=== PATIENT | female | born 1950 | race Caucasian/White ===

== ENCOUNTER 2019-03-30 05:41 | Inpatient (IN) ==
[2019-03-12 10:16] LABS: Basophils % 0.5 % (0.0-0.8); Eosinophils # 0.1 10*3/uL (0.0-0.87); Eosinophils % 1.4 % (0.00-10.9); Hematocrit 40.8 VOL% (35.7-47.0); Hemoglobin 12.4 GM/DL (12.0-16.0); Immature Granulocytes % 0.4 %; Immature Granulocytes Absolute 0.02 #; Lymphocytes % 35.7 % (21.3-54.2); Mean Corpuscular HGB Conc 30.4 GM/DL (32-36); Mean Corpuscular Volume 90.1 FL (87-102); Mean Platelet Volume 10.2 FL (9.6-12.0); Monocytes % 12.3 % (1.7-12.7); Neutrophils % 49.7 % (38.7-73.9); Platelet Count 257 T/CUMM (130-400); Red Blood Count 4.53 MC/CUMM (3.8-5.5); Red Cell Distribution Width 13.2 % (9.3-17.3); White Blood Count 5.7 T/CUMM (4-12)
[2019-03-12 10:27] LABS: Apearance,Urine CLEAR (Clear); Bilirubin,Urine Negative (Negative); Blood, Urine Negative (Negative); Glucose,Urine (UA) Negative (Negative); INR 1.7; Ketones,Urine Negative (Negative); Mucus,Urine Occasional /LPF (Occasional); Nitrite,Urine Negative (Negative); PT Patient Result 18.1 SECS (9.6-12.2); Partial Thromboplastin Time 33.1 SECS (20.8-36.0); Protein,Urine Negative; RBC,Urine <1 /HPF (0-4); Urine Color Straw (Yellow); Urine Specific Gravity 1.008 (1.001-1.035); Urine Urobilinogen < 2.0 EU/DL (0.2-1.0)
[2019-03-12 10:43] LABS: Albumin 3.5 G/DL (3.4-5.0); Bilirubin,Total 0.4 MG/DL (0.2-1.0); Calcium 8.6 MG/DL (8.5-10.1); Thyroid Stimulating Hormone 1.45 uIU/ml (0.358-3.74); Total Protein 7.2 G/DL (6.4-8.3)
[2019-03-30] MEDS ORDERED: ceFAZolin 1,000 MG in SYRINGE 1 EACH IV ONE (06:00)
[2019-03-30] MEDS ORDERED: VANCOMYCIN INJ 1,000 MG in SODIUM CHLORIDE 0.9% 250 ML IV ONE (06:00)
[2019-03-30] MEDS ORDERED: LACTATED RINGERS 1,000 ML IV SCH (06:30)
[2019-03-30] MEDS ORDERED: ALBUTEROL/IPRATROPIUM 3 ML NEB RESP TX ONE (06:34)
[2019-03-30] MEDS ORDERED: GABAPENTIN 400 MG CAPSULE PO ONE (06:34)
[2019-03-30] MEDS ORDERED: FAMOTIDINE 20 MG TABLET PO ONE (06:34)
[2019-03-30] MEDS ORDERED: ACETAMINOPHEN 500 MG TABLET PO ONE (06:34)
[2019-03-30] MEDS ORDERED: ceFAZolin 1,000 MG VIAL ONE (06:37)
[2019-03-30] MEDS ORDERED: VANCOMYCIN 1,000 MG VIAL ONE (06:37)
[2019-03-30] MEDS ORDERED: ACETAMINOPHEN 500 MG TABLET ONE (06:38)
[2019-03-30] MEDS ORDERED: GABAPENTIN 400 MG CAPSULE ONE (06:38)
[2019-03-30] MEDS ORDERED: SCOPOLAMINE 1.5 MG PATCH TRANSDERM ONE ×2 (06:40→06:45)
[2019-03-30 06:42] LABS: PT Patient Result 10.6 SECS (9.6-12.2); Partial Thromboplastin Time 25.9 SECS (20.8-36.0)
[2019-03-30] MEDS ORDERED: fentaNYL 100 MCG/2 ML VIAL ONE (06:52)
[2019-03-30] MEDS ORDERED: MIDAZOLAM 2 MG/2 ML VIAL ONE ×2 (06:52→08:53)
[2019-03-30] MEDS ORDERED: EPINEPHrine 1 MG/ML VIAL ONE (06:57)
[2019-03-30] MEDS ORDERED: DEXAMETHASONE 4 MG/1 ML VIAL ONE ×2 (06:57→08:53)
[2019-03-30] MEDS ORDERED: BUPIVACAINE 0.5% 50 ML VIAL ONE (06:57)
[2019-03-30] MEDS ORDERED: HYDROmorphone 2 MG/1 ML VIAL IV PRN (07:06)
[2019-03-30] MEDS ORDERED: diphenhydrAMINE CAP 25 MG CAPSULE PO PRN (07:06)
[2019-03-30] MEDS ORDERED: BISACODYL 10 MG SUPP RECTAL PRN (07:06)
[2019-03-30] MEDS ORDERED: LACTULOSE 20 GM/30 ML UDCUP PO PRN (07:06)
[2019-03-30] MEDS ORDERED: TEMAZEPAM 7.5 MG CAPSULE PO PRN (07:06)
[2019-03-30] MEDS ORDERED: PROMETHAZINE 25 MG/1 ML VIAL IM PRN (07:06)
[2019-03-30] MEDS ORDERED: MAGNESIUM HYDROXIDE SUSP 30 ML UDCUP PO PRN (07:06)
[2019-03-30] MEDS ORDERED: ONDANSETRON 4 MG/2 ML VIAL IV PRN (07:06)
[2019-03-30] MEDS ORDERED: LORATADINE 10 MG TABLET PO PRN (07:08)
[2019-03-30] MEDS ORDERED: IBUPROFEN 600 MG TABLET PO PRN (07:08)
[2019-03-30] MEDS ORDERED: PROPOFOL 200 MG/20 ML VIAL IV ONE (08:52)
[2019-03-30] MEDS ORDERED: ePHEDrine 50 MG/ML AMP ONE (08:53)
[2019-03-30] MEDS ORDERED: ETOMIDATE 40 MG/20 ML VIAL IV ONE (08:53)
[2019-03-30] MEDS ORDERED: LACTATED RINGERS 1,000 ML IV ONE (08:53)
[2019-03-30] MEDS ORDERED: SODIUM CHLORIDE 0.9% 100 ML IV ONE (08:53)
[2019-03-30] MEDS ORDERED: GLYCOPYRROLATE 0.4 MG/2 ML VIAL ONE (08:53)
[2019-03-30] MEDS ORDERED: CARVEDILOL 3.125 MG TABLET PO SCH (09:00)
[2019-03-30] MEDS: DRONEDARONE 400 MG TABLET PO SCH ×2 (10:12→17:11)
[2019-03-30] MEDS: LOSARTAN 50 MG TABLET PO SCH ×2 (10:13→22:12)
[2019-03-30] MEDS: DOCUSATE SODIUM 100 MG CAPSULE PO SCH ×2 (10:19→22:05)
[2019-03-30] MEDS: ASPIRIN EC 81 MG TABLET PO SCH (10:19)
[2019-03-30] MEDS: FUROSEMIDE 20 MG TABLET PO SCH (10:20)
[2019-03-30] MEDS: ceFAZolin 1,000 MG in SYRINGE 1 EACH IV SCH ×2 (14:47→22:59)
[2019-03-30] MEDS: WARFARIN 2.5 MG TABLET PO SCH (17:10)
[2019-03-30] MEDS: CARVEDILOL 3.125 MG TABLET PO SCH (22:05)
[2019-03-30] MEDS: MULTIVITAMIN (OCUVITE) TABLET PO SCH (22:05)
[2019-03-30] MEDS: PANTOPRAZOLE 40 MG TABLET PO SCH (22:05)
[2019-03-30] MEDS: SIMVASTATIN 10 MG TABLET PO SCH (22:06)
[2019-03-31 05:17] LABS: PT Patient Result 10.5 SECS (9.6-12.2)
[2019-03-31 05:19] LABS: Basophils % 0.2 % (0.0-0.8); Hematocrit 30.4 VOL% (35.7-47.0); Hemoglobin 9.7 GM/DL (12.0-16.0); Immature Granulocytes % 0.4 %; Immature Granulocytes Absolute 0.05 #; Lymphocytes # 1.3 10*3/uL (1.4-4.0); Mean Corpuscular HGB Conc 31.9 GM/DL (32-36); Mean Corpuscular Volume 89.1 FL (87-102); Monocytes % 6.5 % (1.7-12.7); Neutrophils % 82.9 % (38.7-73.9); Platelet Count 199 T/CUMM (130-400); Red Blood Count 3.41 MC/CUMM (3.8-5.5); Red Cell Distribution Width 13.1 % (9.3-17.3); White Blood Count 12.6 T/CUMM (4-12)
[2019-03-31 05:40] LABS: Calcium 8.2 MG/DL (8.5-10.1); Osmolality,Calculated 284.1 MOS/KG (273-304)
[2019-03-31] MEDS: LEVOTHYROXINE 88 MCG TABLET PO SCH (06:39)
[2019-03-31] MEDS: FUROSEMIDE 20 MG TABLET PO SCH (08:52)
[2019-03-31] MEDS: LOSARTAN 50 MG TABLET PO SCH ×2 (08:52→22:00)
[2019-03-31] MEDS: CARVEDILOL 3.125 MG TABLET PO SCH ×2 (08:52→22:02)
[2019-03-31] MEDS: DRONEDARONE 400 MG TABLET PO SCH ×2 (08:52→17:39)
[2019-03-31] MEDS: ASPIRIN EC 81 MG TABLET PO SCH (08:52)
[2019-03-31] MEDS: DOCUSATE SODIUM 100 MG CAPSULE PO SCH ×2 (08:52→22:00)
[2019-03-31] MEDS: WARFARIN 5 MG TABLET PO SCH (17:39)
[2019-03-31] MEDS: MULTIVITAMIN (OCUVITE) TABLET PO SCH ×2 (21:59→22:00)
[2019-03-31] MEDS: SIMVASTATIN 10 MG TABLET PO SCH (22:00)
[2019-03-31] MEDS: PANTOPRAZOLE 40 MG TABLET PO SCH (22:00)
[2019-04-01 05:54] LABS: Basophils % 0.1 % (0.0-0.8); Eosinophils % 0.4 % (0.00-10.9); Hematocrit 26.5 VOL% (35.7-47.0); Hemoglobin 8.4 GM/DL (12.0-16.0); Immature Granulocytes % 0.4 %; Immature Granulocytes Absolute 0.04 #; Lymphocytes # 2.2 10*3/uL (1.4-4.0); Lymphocytes % 22.3 % (21.3-54.2); Mean Corpuscular HGB Conc 31.7 GM/DL (32-36); Mean Corpuscular Volume 90.4 FL (87-102); Mean Platelet Volume 11.3 FL (9.6-12.0); Monocytes % 10.8 % (1.7-12.7); Platelet Count 173 T/CUMM (130-400); Red Blood Count 2.93 MC/CUMM (3.8-5.5); Red Cell Distribution Width 13.4 % (9.3-17.3); White Blood Count 9.7 T/CUMM (4-12)
[2019-04-01] MEDS: LEVOTHYROXINE 88 MCG TABLET PO SCH (06:28)
[2019-04-01] MEDS: FUROSEMIDE 20 MG TABLET PO SCH (10:52)
[2019-04-01] MEDS: DOCUSATE SODIUM 100 MG CAPSULE PO SCH ×2 (10:53→21:22)
[2019-04-01] MEDS: DRONEDARONE 400 MG TABLET PO SCH ×2 (10:53→18:01)
[2019-04-01] MEDS: ASPIRIN EC 81 MG TABLET PO SCH (10:53)
[2019-04-01] MEDS: LOSARTAN 50 MG TABLET PO SCH ×2 (10:54→21:23)
[2019-04-01] MEDS: CARVEDILOL 3.125 MG TABLET PO SCH ×2 (10:54→21:22)
[2019-04-01] MEDS: WARFARIN 2.5 MG TABLET PO SCH (18:01)
[2019-04-01] MEDS: SIMVASTATIN 10 MG TABLET PO SCH (21:23)
[2019-04-01] MEDS: PANTOPRAZOLE 40 MG TABLET PO SCH (21:23)
[2019-04-01] MEDS: MULTIVITAMIN (OCUVITE) TABLET PO SCH (21:23)
[2019-04-02 06:07] LABS: Basophils % 0.3 % (0.0-0.8); Eosinophils # 0.2 10*3/uL (0.0-0.87); Eosinophils % 3.3 % (0.00-10.9); Hematocrit 25.7 VOL% (35.7-47.0); Immature Granulocytes % 0.3 %; Immature Granulocytes Absolute 0.02 #; Lymphocytes % 28.9 % (21.3-54.2); Mean Corpuscular HGB Conc 31.1 GM/DL (32-36); Mean Corpuscular Volume 91.1 FL (87-102); Monocytes % 11.7 % (1.7-12.7); Neutrophils % 55.5 % (38.7-73.9); Platelet Count 192 T/CUMM (130-400); Red Blood Count 2.82 MC/CUMM (3.8-5.5); Red Cell Distribution Width 13.5 % (9.3-17.3)
[2019-04-02 06:09] LABS: INR 1.2; PT Patient Result 12.7 SECS (9.6-12.2)
[2019-04-02] MEDS: LEVOTHYROXINE 88 MCG TABLET PO SCH (06:19)
[2019-04-02] MEDS ORDERED: SODIUM CHLORIDE 0.9% 1,000 ML IV PRN (08:51)
[2019-04-02] MEDS: LOSARTAN 50 MG TABLET PO SCH ×2 (10:05→20:36)
[2019-04-02] MEDS: DOCUSATE SODIUM 100 MG CAPSULE PO SCH ×2 (10:05→20:36)
[2019-04-02] MEDS: ASPIRIN EC 81 MG TABLET PO SCH (10:05)
[2019-04-02] MEDS: DRONEDARONE 400 MG TABLET PO SCH ×2 (10:06→20:36)
[2019-04-02] MEDS: CARVEDILOL 3.125 MG TABLET PO SCH ×2 (10:07→20:36)
[2019-04-02] MEDS: FUROSEMIDE 20 MG TABLET PO SCH (10:08)
[2019-04-02] MEDS: MULTIVITAMIN (OCUVITE) TABLET PO SCH (20:36)
[2019-04-02] MEDS: SIMVASTATIN 10 MG TABLET PO SCH (20:37)
[2019-04-02] MEDS: PANTOPRAZOLE 40 MG TABLET PO SCH (20:37)
[2019-04-02] MEDS: WARFARIN 5 MG TABLET PO SCH (20:40)
[2019-04-03 05:47] LABS: Basophils % 0.5 % (0.0-0.8); Eosinophils # 0.2 10*3/uL (0.0-0.87); Eosinophils % 2.9 % (0.00-10.9); Hematocrit 32.8 VOL% (35.7-47.0); Hemoglobin 10.4 GM/DL (12.0-16.0); Immature Granulocytes % 0.4 %; Immature Granulocytes Absolute 0.03 #; Lymphocytes # 2.2 10*3/uL (1.4-4.0); Lymphocytes % 28.9 % (21.3-54.2); Mean Corpuscular HGB Conc 31.7 GM/DL (32-36); Mean Corpuscular Volume 89.6 FL (87-102); Monocytes % 11.5 % (1.7-12.7); Neutrophils % 55.8 % (38.7-73.9); Platelet Count 191 T/CUMM (130-400); Red Blood Count 3.66 MC/CUMM (3.8-5.5); Red Cell Distribution Width 13.7 % (9.3-17.3); White Blood Count 7.6 T/CUMM (4-12)
[2019-04-03] MEDS: LEVOTHYROXINE 88 MCG TABLET PO SCH (06:51)
[2019-04-03 07:43] VITALS: BP 150/60
[2019-04-03] MEDS: ASPIRIN EC 81 MG TABLET PO SCH (09:25)
[2019-04-03] MEDS: DOCUSATE SODIUM 100 MG CAPSULE PO SCH (09:25)
[2019-04-03] MEDS: LOSARTAN 50 MG TABLET PO SCH (09:26)
[2019-04-03] MEDS: CARVEDILOL 3.125 MG TABLET PO SCH (09:26)
[2019-04-03] MEDS: DRONEDARONE 400 MG TABLET PO SCH (09:26)
[2019-04-03] MEDS: FUROSEMIDE 20 MG TABLET PO SCH (09:27)
== END 2019-04-03 10:54 | DRG 470 ==
LOC: N.SDSINP 05:41 → N.OR 05:41 → N.SDSINP 07:06 → N.3E 09:49
PROVIDERS: ADMIT Orthopaedic Surgery; ATTEND Orthopaedic Surgery

== ENCOUNTER 2019-10-02 06:51 | Observation (INO) ==
[2019-10-02] MEDS ORDERED: ASPIRIN 325 MG TABLET PO STA (07:17)
[2019-10-02] MEDS: NITROGLYCERIN SL 0.4 MG TABLET SL PRN ×3 (07:26→07:50)
[2019-10-02 07:48] LABS: Basophils # 0.1 10*3/uL (0.0-0.2); Basophils % 0.9 % (0.0-0.8); Eosinophils # 0.2 10*3/uL (0.0-0.87); Eosinophils % 3.1 % (0.00-10.9); Hematocrit 41.7 VOL% (35.7-47.0); Hemoglobin 13.4 GM/DL (12.0-16.0); Immature Granulocytes % 0.2 %; Immature Granulocytes Absolute 0.01 #; Lymphocytes # 1.4 10*3/uL (1.4-4.0); Lymphocytes % 24.8 % (21.3-54.2); Mean Corpuscular HGB Conc 32.1 GM/DL (32-36); Mean Corpuscular Volume 91.4 FL (87-102); Mean Platelet Volume 10.9 FL (9.6-12.0); Monocytes % 9.5 % (1.7-12.7); Neutrophils % 61.5 % (38.7-73.9); Platelet Count 263 T/CUMM (130-400); Red Blood Count 4.56 MC/CUMM (3.8-5.5); Red Cell Distribution Width 12.7 % (9.3-17.3); White Blood Count 5.5 T/CUMM (4-12)
[2019-10-02 07:49] LABS: Albumin 3.9 G/DL (3.4-5.0); Bilirubin,Total 0.7 MG/DL (0.2-1.0); Calcium 9.4 MG/DL (8.5-10.1); Osmolality,Calculated 278.5 MOS/KG (273-304); Total Protein 7.1 G/DL (6.4-8.3)
[2019-10-02 08:05] LABS: PT Patient Result 10.7 SECS (9.6-12.2); Partial Thromboplastin Time 28.5 SECS (20.8-36.0)
[2019-10-02] MEDS ORDERED: ONDANSETRON 4 MG/2 ML VIAL IV PRN (10:22)
[2019-10-02] MEDS ORDERED: MAGNESIUM SULF RIDER 2 GM in PREMIX 1 EACH IV PRN (10:22)
[2019-10-02] MEDS ORDERED: MAGNESIUM SULF RIDER 4 GM in PREMIX 1 EACH IV PRN (10:22)
[2019-10-02] MEDS ORDERED: SODIUM CHLORIDE 0.45% 1,000 ML IV SCH (10:30)
[2019-10-02] MEDS ORDERED: PROMETHAZINE 25 MG TABLET PO PRN (10:38)
[2019-10-02] MEDS ORDERED: METAXALONE 800 MG TABLET PO PRN (10:38)
[2019-10-02] MEDS: buPROPion 75 MG TABLET PO SCH ×2 (15:04→21:19)
[2019-10-02] MEDS: GABAPENTIN 100 MG CAPSULE PO SCH ×3 (15:04→21:18)
[2019-10-02] MEDS: ACETAMINOPHEN 325 MG TABLET PO SCH ×2 (15:05→21:20)
[2019-10-02] MEDS: DRONEDARONE 400 MG TABLET PO SCH (16:57)
[2019-10-02] MEDS ORDERED: PANTOPRAZOLE 40 MG TABLET PO SCH (21:00)
[2019-10-02] MEDS ORDERED: MULTIVITAMIN (OCUVITE) TABLET PO SCH (21:00)
[2019-10-02] MEDS ORDERED: SIMVASTATIN 20 MG TABLET PO SCH (21:00)
[2019-10-02] MEDS: APIXABAN 5 MG TABLET PO SCH (21:19)
[2019-10-02] MEDS: carvediloL 3.125 MG TABLET PO SCH (21:20)
[2019-10-02] MEDS: LOSARTAN 50 MG TABLET PO SCH (21:20)
[2019-10-03] MEDS ORDERED: LEVOTHYROXINE 88 MCG TABLET PO SCH (07:00)
[2019-10-03] MEDS: ACETAMINOPHEN 325 MG TABLET PO SCH (08:14)
[2019-10-03] MEDS: DRONEDARONE 400 MG TABLET PO SCH (08:14)
[2019-10-03] MEDS: GABAPENTIN 100 MG CAPSULE PO SCH (08:14)
[2019-10-03] MEDS: buPROPion 75 MG TABLET PO SCH (08:15)
[2019-10-03] MEDS: APIXABAN 5 MG TABLET PO SCH (08:15)
[2019-10-03] MEDS: LOSARTAN 50 MG TABLET PO SCH (08:15)
[2019-10-03] MEDS: carvediloL 3.125 MG TABLET PO SCH (08:21)
[2019-10-03] MEDS ORDERED: ASPIRIN EC 81 MG TABLET PO SCH (09:00)
[2019-10-03] MEDS ORDERED: FUROSEMIDE 20 MG TABLET PO SCH (09:00)
[2019-10-03] MEDS ORDERED: PANTOPRAZOLE 40 MG TABLET PO SCH (09:00)
[2019-10-03 10:30] VITALS: BP 121/67
== END 2019-10-03 11:24 | disposition home or self-care (01) ==
LOC: N.EDINP 06:51 → N.ED 06:51 → N.TELES 11:04
PROVIDERS: ADMIT Internal Medicine Cardiovascular Disease; ATTEND Internal Medicine Cardiovascular Disease

== ENCOUNTER 2019-10-26 13:25 | Observation (INO) ==
[2019-10-26] MEDS ORDERED: SODIUM CHLORIDE 0.9% 500 ML IV STA (14:05)
[2019-10-26] MEDS ORDERED: ONDANSETRON 4 MG/2 ML VIAL IV STA (14:07)
[2019-10-26 14:45] LABS: Basophils # 0.1 10*3/uL (0.0-0.2); Basophils % 0.8 % (0.0-0.8); Eosinophils # 0.2 10*3/uL (0.0-0.87); Eosinophils % 2.5 % (0.00-10.9); Hemoglobin 13.2 GM/DL (12.0-16.0); Immature Granulocytes % 0.3 %; Immature Granulocytes Absolute 0.02 #; Lymphocytes # 1.5 10*3/uL (1.4-4.0); Lymphocytes % 18.8 % (21.3-54.2); Mean Corpuscular HGB Conc 30.7 GM/DL (32-36); Mean Corpuscular Volume 94.7 FL (87-102); Mean Platelet Volume 10.6 FL (9.6-12.0); Monocytes % 10.1 % (1.7-12.7); Neutrophils % 67.5 % (38.7-73.9); Platelet Count 247 T/CUMM (130-400); Red Blood Count 4.54 MC/CUMM (3.8-5.5); Red Cell Distribution Width 12.6 % (9.3-17.3); White Blood Count 7.9 T/CUMM (4-12)
[2019-10-26 14:56] LABS: INR 1.1; PT Patient Result 11.5 SECS (9.8-11.9)
[2019-10-26 15:08] LABS: Albumin 3.7 G/DL (3.4-5.0); Bilirubin,Total 0.6 MG/DL (0.2-1.0); Osmolality,Calculated 281.4 MOS/KG (273-304); Total Protein 6.8 G/DL (6.4-8.3)
[2019-10-26] MEDS ORDERED: ONDANSETRON 4 MG/2 ML VIAL IV PRN (17:26)
[2019-10-26] MEDS ORDERED: ACETAMINOPHEN 325 MG TABLET PO PRN (17:26)
[2019-10-26] MEDS ORDERED: LORATADINE 10 MG TABLET PO PRN (17:26)
[2019-10-26] MEDS ORDERED: NITROGLYCERIN SL 0.4 MG TABLET SL PRN (17:26)
[2019-10-26] MEDS: DRONEDARONE 400 MG TABLET PO SCH (18:01)
[2019-10-26] MEDS: SODIUM CHLORIDE 0.9% 1,000 ML IV SCH (18:01)
[2019-10-26 18:31] LABS: Troponin I < 0.015 NG/ML (0.00-0.045)
[2019-10-26] MEDS ORDERED: SIMVASTATIN 10 MG TABLET PO SCH (21:00)
[2019-10-26] MEDS ORDERED: PANTOPRAZOLE 40 MG TABLET PO SCH (21:00)
[2019-10-26] MEDS ORDERED: MULTIVITAMIN (OCUVITE) TABLET PO SCH (21:00)
[2019-10-26] MEDS: carvediloL 3.125 MG TABLET PO SCH (22:02)
[2019-10-26] MEDS: APIXABAN 5 MG TABLET PO SCH (22:03)
[2019-10-26] MEDS: LOSARTAN 50 MG TABLET PO SCH (22:03)
[2019-10-26] MEDS: GABAPENTIN 100 MG CAPSULE PO SCH (22:03)
[2019-10-26] MEDS: DOCUSATE SODIUM 100 MG CAPSULE PO SCH (22:03)
[2019-10-26] MEDS: buPROPion 75 MG TABLET PO SCH (22:03)
[2019-10-27] MEDS: SODIUM CHLORIDE 0.9% 1,000 ML IV SCH (02:54)
[2019-10-27 05:05] LABS: Basophils % 0.6 % (0.0-0.8); Eosinophils # 0.2 10*3/uL (0.0-0.87); Hematocrit 33.9 VOL% (35.7-47.0); Hemoglobin 10.5 GM/DL (12.0-16.0); Immature Granulocytes % 0.2 %; Immature Granulocytes Absolute 0.01 #; Lymphocytes # 1.5 10*3/uL (1.4-4.0); Lymphocytes % 27.7 % (21.3-54.2); Mean Platelet Volume 10.7 FL (9.6-12.0); Monocytes % 9.1 % (1.7-12.7); Neutrophils % 59.4 % (38.7-73.9); Platelet Count 191 T/CUMM (130-400); Red Blood Count 3.57 MC/CUMM (3.8-5.5); Red Cell Distribution Width 12.3 % (9.3-17.3); White Blood Count 5.4 T/CUMM (4-12)
[2019-10-27 05:37] LABS: Albumin 2.8 G/DL (3.4-5.0); Bilirubin,Total 0.7 MG/DL (0.2-1.0); Calcium 8.2 MG/DL (8.5-10.1); Osmolality,Calculated 287.8 MOS/KG (273-304); Risk Ratio 1.91; Total Protein 5.4 G/DL (6.4-8.3); VLDL CHOLESTEROL 15.2 MG/DL
[2019-10-27 06:00] LABS: Apearance,Urine Slightly Hazy (Clear); Bacteria,Urine Many /HPF (Few); Bilirubin,Urine Negative (Negative); Blood, Urine Negative (Negative); Calcium Oxalate Crystals,Urine Occasional /HPF (Few); Glucose,Urine (UA) Negative (Negative); Ketones,Urine Negative (Negative); Mucus,Urine Many /LPF (Occasional); Nitrite,Urine Positive (Negative); Protein,Urine 30 MG/DL; RBC,Urine 2 /HPF (0-4); Urine Color Amber (Yellow); Urine Specific Gravity 1.027 (1.001-1.035); Urine Urobilinogen < 2.0 EU/DL (0.2-1.0); WBC,Urine 21 /HPF (0-6)
[2019-10-27] MEDS ORDERED: LEVOTHYROXINE 88 MCG TABLET PO SCH (07:00)
[2019-10-27] MEDS: buPROPion 75 MG TABLET PO SCH (08:42)
[2019-10-27] MEDS: carvediloL 3.125 MG TABLET PO SCH (08:42)
[2019-10-27] MEDS: DOCUSATE SODIUM 100 MG CAPSULE PO SCH (08:43)
[2019-10-27] MEDS: GABAPENTIN 100 MG CAPSULE PO SCH (08:43)
[2019-10-27] MEDS: LOSARTAN 50 MG TABLET PO SCH (08:43)
[2019-10-27] MEDS: APIXABAN 5 MG TABLET PO SCH (08:43)
[2019-10-27] MEDS: DRONEDARONE 400 MG TABLET PO SCH (08:43)
[2019-10-27] MEDS ORDERED: FUROSEMIDE 20 MG TABLET PO SCH (09:00)
[2019-10-27] MEDS ORDERED: PANTOPRAZOLE 40 MG TABLET PO SCH (09:00)
[2019-10-27] MEDS ORDERED: ASPIRIN EC 81 MG TABLET PO SCH (09:00)
[2019-10-27] MEDS ORDERED: LOSARTAN 25 MG TABLET PO SCH (11:03)
[2019-10-27 11:37] VITALS: BP 122/40
== END 2019-10-27 14:09 | disposition home or self-care (01) ==
LOC: N.EDINP 13:25 → N.ED 13:25 → N.3E 16:47
PROVIDERS: ADMIT Family Medicine; ATTEND Family Medicine

== ENCOUNTER 2020-10-23 11:49 | Inpatient (IN) ==
[2020-10-23] MEDS ORDERED: SODIUM CHLORIDE 0.9% 1,000 ML IV STA (12:20)
[2020-10-23 12:26] LABS: Basophils % 0.5 % (0.0-0.8); Eosinophils # 0.1 10*3/uL (0.0-0.87); Hematocrit 41.2 VOL% (35.7-47.0); Hemoglobin 12.8 GM/DL (12.0-16.0); Immature Granulocytes % 0.4 %; Immature Granulocytes Absolute 0.03 #; Lymphocytes # 1.4 10*3/uL (1.4-4.0); Mean Corpuscular HGB Conc 31.1 GM/DL (32-36); Mean Corpuscular Volume 92.8 FL (87-102); Monocytes % 8.4 % (1.7-12.7); Neutrophils % 71.7 % (38.7-73.9); Platelet Count 207 T/CUMM (130-400); Red Blood Count 4.44 MC/CUMM (3.8-5.5); Red Cell Distribution Width 12.9 % (9.3-17.3); White Blood Count 7.8 T/CUMM (4-12)
[2020-10-23 12:49] LABS: Albumin 3.6 G/DL (3.4-5.0); Bilirubin,Total 0.6 MG/DL (0.2-1.0); Calcium 8.4 MG/DL (8.5-10.1); Osmolality,Calculated 281.4 MOS/KG (273-304); Potassium 3.8 MMOL/L (3.5-5.1); Total Protein 6.3 G/DL (6.4-8.2)
[2020-10-23] MEDS ORDERED: ACETAMINOPHEN 325 MG TABLET PO PRN (15:10)
[2020-10-23] MEDS ORDERED: ONDANSETRON 4 MG/2 ML VIAL IV PRN (15:10)
[2020-10-23] MEDS: SODIUM CHLORIDE 0.9% 1,000 ML IV SCH (16:48)
[2020-10-23] MEDS: KETOROLAC 10 MG TABLET PO PRN (16:54)
[2020-10-23] MEDS: DRONEDARONE 400 MG TABLET PO SCH (18:05)
[2020-10-23] MEDS ORDERED: DIAZEPAM 10 MG/2 ML SYRINGE IV PRN (18:14)
[2020-10-23 18:41] LABS: Troponin I 0.038 NG/ML (0.00-0.045)
[2020-10-23] MEDS: GABAPENTIN 100 MG CAPSULE PO SCH (20:13)
[2020-10-23] MEDS: DOCUSATE SODIUM 100 MG CAPSULE PO SCH (20:13)
[2020-10-23] MEDS: SIMVASTATIN 10 MG TABLET PO SCH (20:13)
[2020-10-23] MEDS: BACLOFEN 10 MG TABLET PO SCH (20:14)
[2020-10-23] MEDS: APIXABAN 5 MG TABLET PO SCH (20:14)
[2020-10-23 21:11] LABS: Troponin I 0.028 NG/ML (0.00-0.045)
[2020-10-24 00:49] LABS: Troponin I 0.025 NG/ML (0.00-0.045)
[2020-10-24 04:11] LABS: Troponin I 0.022 NG/ML (0.00-0.045)
[2020-10-24] MEDS: SODIUM CHLORIDE 0.9% 1,000 ML IV SCH ×2 (05:22→18:21)
[2020-10-24] MEDS: carvediloL 3.125 MG TABLET PO SCH ×2 (08:38→21:15)
[2020-10-24] MEDS: LOSARTAN 25 MG TABLET PO SCH ×2 (08:38→21:16)
[2020-10-24] MEDS: DOCUSATE SODIUM 100 MG CAPSULE PO SCH ×2 (08:39→21:15)
[2020-10-24] MEDS: GABAPENTIN 100 MG CAPSULE PO SCH ×3 (08:39→21:16)
[2020-10-24] MEDS: PANTOPRAZOLE 40 MG TABLET PO SCH (08:39)
[2020-10-24] MEDS: SERTRALINE 50 MG TABLET PO SCH (08:39)
[2020-10-24] MEDS: LEVOTHYROXINE 75 MCG TABLET PO SCH (08:39)
[2020-10-24] MEDS: APIXABAN 5 MG TABLET PO SCH ×2 (08:39→21:16)
[2020-10-24] MEDS: ASPIRIN EC 81 MG TABLET PO SCH (08:39)
[2020-10-24] MEDS: KETOROLAC 10 MG TABLET PO PRN ×2 (08:41→23:54)
[2020-10-24] MEDS: DRONEDARONE 400 MG TABLET PO SCH ×2 (08:45→17:04)
[2020-10-24] MEDS: amLODIPine 2.5 MG TABLET PO SCH (12:26)
[2020-10-24] MEDS: SIMVASTATIN 10 MG TABLET PO SCH (21:16)
[2020-10-24] MEDS: BACLOFEN 10 MG TABLET PO SCH (21:16)
[2020-10-25 04:52] LABS: Basophils % 0.4 % (0.0-0.8); Eosinophils # 0.2 10*3/uL (0.0-0.87); Eosinophils % 3.1 % (0.00-10.9); Hematocrit 29.1 VOL% (35.7-47.0); Immature Granulocytes % 0.2 %; Immature Granulocytes Absolute 0.01 #; Lymphocytes # 1.4 10*3/uL (1.4-4.0); Mean Corpuscular HGB Conc 30.9 GM/DL (32-36); Mean Corpuscular Volume 94.8 FL (87-102); Mean Platelet Volume 10.6 FL (9.6-12.0); Monocytes % 11.5 % (1.7-12.7); Neutrophils % 57.8 % (38.7-73.9); Red Blood Count 3.07 MC/CUMM (3.8-5.5); Red Cell Distribution Width 12.6 % (9.3-17.3); White Blood Count 5.1 T/CUMM (4-12)
[2020-10-25 04:57] LABS: Platelet Count 154 T/CUMM (130-400)
[2020-10-25 05:08] LABS: Calcium 7.9 MG/DL (8.5-10.1); Potassium 3.6 MMOL/L (3.5-5.1)
[2020-10-25] MEDS: SODIUM CHLORIDE 0.9% 1,000 ML IV SCH (06:53)
[2020-10-25] MEDS: DRONEDARONE 400 MG TABLET PO SCH (08:36)
[2020-10-25] MEDS: LEVOTHYROXINE 75 MCG TABLET PO SCH (08:36)
[2020-10-25] MEDS: DOCUSATE SODIUM 100 MG CAPSULE PO SCH (08:36)
[2020-10-25] MEDS: SERTRALINE 50 MG TABLET PO SCH (08:36)
[2020-10-25] MEDS: ASPIRIN EC 81 MG TABLET PO SCH (08:36)
[2020-10-25] MEDS: GABAPENTIN 100 MG CAPSULE PO SCH (08:36)
[2020-10-25] MEDS: PANTOPRAZOLE 40 MG TABLET PO SCH (08:36)
[2020-10-25] MEDS: KETOROLAC 10 MG TABLET PO PRN (08:36)
[2020-10-25] MEDS: APIXABAN 5 MG TABLET PO SCH (08:37)
[2020-10-25] MEDS: LOSARTAN 25 MG TABLET PO SCH ×2 (08:37→11:56)
[2020-10-25] MEDS: carvediloL 3.125 MG TABLET PO SCH ×2 (08:37→11:56)
[2020-10-25 11:58] VITALS: BP 151/72
[2020-10-25] MEDS: amLODIPine 2.5 MG TABLET PO SCH (12:20)
[2020-10-25] MEDS ORDERED: ONDANSETRON 4 MG TABLET PO PRN (12:24)
== END 2020-10-25 16:23 | disposition home or self-care (01) | DRG 312 ==
LOC: EDBD → EDUNIT# → N.ED 11:49 → N.EDINP 15:10 → N.ICU 16:30
PROVIDERS: ADMIT Family Medicine; ATTEND Family Medicine